=== PATIENT | male | born 1990 | race African-American/Black ===

== ENCOUNTER 2021-10-28 10:27 | Emergency (ER) | payer SELFPAY | END 2021-10-28 11:35 | disposition home or self-care (01) | LOC: CSHERS 10:27 | DX: R42 Dizziness and giddiness (principal); M10.9 Gout, unspecified | CPT/HCPCS: 93005 ==

== ENCOUNTER 2025-03-31 21:56 | Emergency (ER) | payer SELFPAY ==
[2025-03-31] MEDS ORDERED: Lidocaine 1% w/Epinephrine 1:200K 30 ML VIAL ONE (22:38)
== END 2025-03-31 23:49 | disposition home or self-care (01) ==
LOC: CSHERS 21:56
DX: S91.341A Puncture wound with foreign body, right foot, initial encounter (principal); M10.9 Gout, unspecified; Z23 Encounter for immunization; Z55.6 Problems related to health literacy; X58.XXXA Exposure to other specified factors, initial encounter; Y93.01 Activity, walking, marching and hiking
CPT/HCPCS: 10120; 90471; 90715